=== PATIENT | female | born 1955 | race Caucasian/White ===

== ENCOUNTER 2022-03-13 07:34 | Day surgery (SDC) | payer MEDICARE, OTHER ==
[2022-03-13] MEDS ORDERED: Lactated Ringers 1,000 ML IV SCH (08:00)
[2022-03-13] MEDS ORDERED: Propofol 200 MG/20 ML SDV ONE (08:25)
[2022-03-13] MEDS ORDERED: fentaNYL 50 MCG/ML SDV ONE (08:26)
[2022-03-13] MEDS ORDERED: Midazolam 1 MG/ML 2 ML SDV ONE (08:26)
== END 2022-03-13 12:30 | disposition home or self-care (01) ==
LOC: JP.SDS 07:34
PROVIDERS: ATTEND Family Medicine
DX: Z12.11 Encounter for screening for malignant neoplasm of colon (principal); E66.9 Obesity, unspecified; Z86.010 Personal history of colon polyps; Z90.710 Acquired absence of both cervix and uterus; Z79.899 Other long term (current) drug therapy; Z68.41 Body mass index [BMI] 40.0-44.9, adult
CPT/HCPCS: J2250; J2704; J3010; J7120